=== PATIENT | female | born 1955 | race Two or more races ===

== ENCOUNTER → 2020-12-31 | Day surgery (SDC) | payer BC ==
[2020-12-28 15:36] LABS: Basophils # (auto) 0.1 10 ^3/uL (0-0.2); Basophils % (auto) 0.7 % (0.0-2.0); Eosinophils # (auto) 0.2 10 ^3/uL (0-0.8); Eosinophils % (auto) 1.8 % (0.0-7.0); Hematocrit 43.4 % (36.0-46.0); Hemoglobin 14.7 g/dL (12.2-16.2); Lymphocytes # (auto) 1.2 10 ^3/uL (0.4-5.4); Lymphocytes % (auto) 12.2 % (10.0-50.0); Mean Corpuscular Hemoglobin 30.1 pg (28.0-32.0); Mean Corpuscular Hgb Conc. 33.9 g/dL (32.0-36.0); Mean Corpuscular Volume 88.8 fL (80.0-100.0); Monocytes # (auto) 0.8 10 ^3/uL (0-1.3); Monocytes % (auto) 7.3 % (0.0-12.0); Platelet Count (auto) 251 10^3/uL (140-450); Red Blood Cells 4.89 10^6/uL (4.0-5.20); Red Cell Distribution Width 14.4 % (11.8-14.3); White Blood Cell 10.2 10^3/uL (4.4-10.8)
[2020-12-28 15:57] LABS: INR 0.92 (0.9-1.15); Partial Thromboplastin Time 26.2 sec (23.0-31.2)
[~2020-12-31] VITALS: Ht 162.6 cm; Wt 85.7 kg
[~2020-12-31] MED LIST: AMLO5CAP40 PO; ASPI81CH59 PO; CHOL400T21 PO; GLUC750T29 PO; MAGN400T40 PO; MULT-948 PO; MULT1TAB70 PO; OMEG100078 PO; SODIUM CHLORIDE LOCK 10 ML ONE
[2020-12-31] MEDS: fentaNYL CITRATE 100 MCG/2 ML VL ONE ×2 (13:20→13:26)
[2020-12-31] MEDS: diphenhdrAMINE HCL 50 MG/1 ML VL ONE ×2 (13:20→13:23)
[2020-12-31] MEDS: MIDAZOLAM HCL 5 MG/ML-1ML VIAL ONE ×2 (13:20→13:23)
[2020-12-31 14:15] VITALS: BP 121/84
== END | disposition home or self-care (01) ==
LOC: GI 12:08
PROVIDERS: ATTEND Internal Medicine Gastroenterology
DX: K62.5 Hemorrhage of anus and rectum (principal); K57.30 Diverticulosis of large intestine without perforation or abscess without bleeding; K64.8 Other hemorrhoids; Z20.822 Contact with and (suspected) exposure to COVID-19; Z98.890 Other specified postprocedural states; Z79.899 Other long term (current) drug therapy; Z79.82 Long term (current) use of aspirin; Z68.32 Body mass index [BMI] 32.0-32.9, adult
CPT/HCPCS: 36415; 45378; 85025; 85610; 85730; J1200; J2250; J3010; J7030; U0003; 99152